=== PATIENT | female | born 1955 | race African-American/Black ===

== ENCOUNTER 2020-05-03 18:33 | Emergency (ER) | payer OTHER ==
[~2020-05-03] VITALS: Ht 172.7 cm; Wt 54.0 kg
[~2020-05-03 18:33] MED LIST: BUME1TAB8 PO; ISOS30TA91 PO; PROT20 PO
[2020-05-03] MEDS ORDERED: MORPHINE SULFATE 2 MG/ML CPJ (NOT FOR IM USE) IV ONE (19:00)
[2020-05-03] MEDS ORDERED: ONDANSETRON HCL 4MG/2ML INJ IV ONE (19:00)
[2020-05-03 19:52] LABS: HEMATOCRIT. 26.2 % (36.0-48.0); HEMOGLOBIN. 8.2 g/dL (12.0-16.0); MEAN CORPUSCULAR HEMOGLOBIN 25.8 pg (28.0-32.0); MEAN CORPUSCULAR VOLUME 82.6 fL (81.0-99.0); PLATELET 216 x1000/uL (130-400); RED BLOOD CELL COUNT 3.17 mill/uL (4.2-5.4); RED CELL DISTRIBUTION WIDTH 18.9 % (11.6-14.6)
[2020-05-03 19:54] LABS: INR 1.1; PROTHROMBIN TIME 12.1 sec (9.6-11.0)
[2020-05-03 19:55] LABS: CHLORIDE 102 mEq/L (98-107)
[2020-05-03] MEDS ORDERED: SODIUM CHLORIDE 0.9% 500 ML IV ONE (20:30)
[2020-05-03 21:25] LABS: PLATELET ESTIMATE NORMAL
[2020-05-03] MEDS ORDERED: AMOX-424 MT (22:32)
[2020-05-03] MEDS ORDERED: ACET-2708 MT (22:34)
[2020-05-04 01:00] VITALS: BP 124/54
== END 2020-05-04 01:44 | disposition home or self-care (01) ==
LOC: ER 18:33
DX: M25.532 Pain in left wrist (principal); R77.8 Other specified abnormalities of plasma proteins; N19 Unspecified kidney failure; I11.0 Hypertensive heart disease with heart failure; I50.9 Heart failure, unspecified; E11.9 Type 2 diabetes mellitus without complications; R51.9 Headache, unspecified; Z79.899 Other long term (current) drug therapy; W05.0XXA Fall from non-moving wheelchair, initial encounter; Y93.89 Activity, other specified; Y92.89 Other specified places as the place of occurrence of the external cause; Y99.8 Other external cause status
CPT/HCPCS: 36415; 70450; 71045; 72125; 73030; 73070; 73110; 73630; 80053; 83605; 83880; 84145; 84484; 85025; 85610; 87040; 93005; 96374; 99285; J2270; J7040

== ENCOUNTER 2020-06-22 10:34 | Emergency (ER) | payer OTHER, MEDICAID ==
[~2020-06-22] VITALS: Ht 152.4 cm; Wt 50.0 kg
[~2020-06-22 10:34] MED LIST changes: +ACET-2708 MT; +AMOX-424 MT
[2020-06-22] MEDS ORDERED: FENTANYL CITRATE/PF 50MCG/ML 2ML VIAL IV ONE (11:30)
[2020-06-22 11:45] LABS: HEMATOCRIT. 38.2 % (36.0-48.0); HEMOGLOBIN. 11.9 g/dL (12.0-16.0); MEAN CORPUSCULAR HEMOGLOBIN 24.4 pg (28.0-32.0); MEAN CORPUSCULAR VOLUME 78.1 fL (81.0-99.0); MEAN PLATELET VOLUME 10.6 fl (7.4-10.4); PLATELET 197 x1000/uL (130-400); RED BLOOD CELL COUNT 4.89 mill/uL (4.2-5.4); RED CELL DISTRIBUTION WIDTH 22.2 % (11.6-14.6)
[2020-06-22 11:52] LABS: CHLORIDE 104 mEq/L (98-107)
[2020-06-22 11:56] LABS: ETHANOL BLOOD < 10 mg/dL; INR 1.1; PROTHROMBIN TIME 11.9 sec (9.6-11.0)
[2020-06-22 12:24] LABS: PLATELET ESTIMATE NORMAL
[2020-06-22] MEDS ORDERED: MORPHINE SULFATE 4 MG/ML CPJ (NOT FOR IM USE) IV NR (14:15)
[2020-06-22] MEDS ORDERED: IBUPROFEN 600MG TABLET PO NR (14:15)
[2020-06-22] MEDS ORDERED: MORPHINE SULFATE 4 MG/ML CPJ (NOT FOR IM USE) IV ONE (16:00)
[2020-06-22 16:45] VITALS: BP 122/57
== END 2020-06-22 16:58 ==
LOC: ER 11:01 → ENRESERV 12:33 → CANBEDREQ 15:15 → ER 16:58
DX: M54.2 Cervicalgia (principal); R51.9 Headache, unspecified; R00.0 Tachycardia, unspecified; I11.0 Hypertensive heart disease with heart failure; I50.9 Heart failure, unspecified; E11.9 Type 2 diabetes mellitus without complications; Z86.73 Personal history of transient ischemic attack (TIA), and cerebral infarction without residual deficits; Z79.899 Other long term (current) drug therapy
CPT/HCPCS: 36415; 70450; 71045; 72125; 80053; 80320; 84484; 85025; 85610; 86850; 86900; 86901; 93005; 96374; 96375; 96376; 99285; J2270; J3010; G0480

== ENCOUNTER 2020-07-06 05:46 | Emergency (ER) | payer OTHER, MEDICAID ==
[~2020-07-06] VITALS: Ht 170.2 cm; Wt 50.0 kg
[2020-07-06] MEDS ORDERED: MORPHINE SULFATE 4 MG/ML CPJ (NOT FOR IM USE) IV STA (06:35)
[2020-07-06 06:44] LABS: HEMATOCRIT. 31.2 % (36.0-48.0); HEMOGLOBIN. 9.8 g/dL (12.0-16.0); MEAN CORPUSCULAR HEMOGLOBIN 23.2 pg (28.0-32.0); MEAN CORPUSCULAR VOLUME 74.3 fL (81.0-99.0); MEAN PLATELET VOLUME 9.8 fl (7.4-10.4); PLATELET 262 x1000/uL (130-400); RED BLOOD CELL COUNT 4.19 mill/uL (4.2-5.4); RED CELL DISTRIBUTION WIDTH 22.1 % (11.6-14.6)
[2020-07-06] MEDS ORDERED: VANCOMYCIN 1 G PREMIX 200 ML IV SCH (06:45)
[2020-07-06 06:48] LABS: CHLORIDE 96 mEq/L (98-107)
[2020-07-06 07:43] LABS: PLATELET ESTIMATE NORMAL
[2020-07-06 11:27] VITALS: BP 139/58
[2020-07-06] MEDS ORDERED: MORPHINE SULFATE 4 MG/ML CPJ (NOT FOR IM USE) IV ONE (11:30)
== END 2020-07-06 12:12 | disposition short-term general hospital (02) ==
LOC: ER 05:46
DX: I11.0 Hypertensive heart disease with heart failure (principal); I50.9 Heart failure, unspecified; M79.89 Other specified soft tissue disorders; E11.9 Type 2 diabetes mellitus without complications; M79.605 Pain in left leg; M79.604 Pain in right leg; Z86.73 Personal history of transient ischemic attack (TIA), and cerebral infarction without residual deficits; Z88.8 Allergy status to other drugs, medicaments and biological substances; Z79.899 Other long term (current) drug therapy
CPT/HCPCS: 36415; 71045; 73700; 80053; 83605; 83880; 84484; 85025; 93005; 93970; 96365; 96375; 96376; 99291; J2270; J3370; 99285

== ENCOUNTER 2020-07-17 01:38 | Emergency (ER) | payer OTHER, MEDICAID ==
[~2020-07-17] VITALS: Ht 162.6 cm; Wt 57.0 kg
[2020-07-17] MEDS ORDERED: ACETAMINOPHEN 500MG TABLET PO ONE (03:00)
[2020-07-17 03:14] LABS: BASOPHILS % 0.6 % (0.0-2.0); EOSINOPHILS % 0.9 % (0.0-5.0); HEMATOCRIT. 26.8 % (36.0-48.0); HEMOGLOBIN. 8.4 g/dL (12.0-16.0); LYMPHOCYTES % 7.7 % (20.0-50.0); MEAN CORPUSCULAR HEMOGLOBIN 23.4 pg (28.0-32.0); MEAN CORPUSCULAR VOLUME 74.5 fL (81.0-99.0); MEAN PLATELET VOLUME 10.6 fl (7.4-10.4); MONOCYTES % 6.3 % (2.0-8.0); NEUTROPHILS % 84.5 % (40.0-76.0); PLATELET 208 x1000/uL (130-400); RED CELL DISTRIBUTION WIDTH 21.8 % (11.6-14.6)
[2020-07-17 03:35] LABS: CHLORIDE 102 mEq/L (98-107)
[2020-07-17] MEDS ORDERED: SODIUM CHLORIDE 0.9% 1,000 ML IV ONE (04:30)
[2020-07-17] MEDS ORDERED: IOHEXOL-300 100 ML BOTTLE ONE (04:57)
[2020-07-17] MEDS ORDERED: KETOROLAC 15MG/ML VIAL IV SCH (05:00)
[2020-07-17] MEDS ORDERED: NA PHOS,M-B/NA PHOS,DI-BA ENEMA 118ML PR ONE (05:00)
[2020-07-17] MEDS ORDERED: POLY17PO3 MT (05:18)
[2020-07-17 07:50] VITALS: BP 130/66
== END 2020-07-17 11:45 | disposition home or self-care (01) ==
LOC: ER 01:38
DX: I13.0 Hypertensive heart and chronic kidney disease with heart failure and stage 1 through stage 4 chronic kidney disease, or unspecified chronic kidney disease (principal); N18.9 Chronic kidney disease, unspecified; E11.22 Type 2 diabetes mellitus with diabetic chronic kidney disease; I50.9 Heart failure, unspecified; K42.9 Umbilical hernia without obstruction or gangrene; Z79.4 Long term (current) use of insulin; D25.9 Leiomyoma of uterus, unspecified; Z86.73 Personal history of transient ischemic attack (TIA), and cerebral infarction without residual deficits
CPT/HCPCS: 36415; 74177; 80053; 83690; 85025; 93005; 99285; Q9967